=== PATIENT | male | born 1945 | race Caucasian/White ===

== ENCOUNTER → 2021-05-27 | Outpatient (CLI) | payer MEDICARE, BC ==
--- NOTE | 2021-05-27 09:20 | RAD ---
Examination: Ultrasound abdomen limited HISTORY: History of right upper quadrant abdomen. COMPARISON: None available FINDINGS: The visualized pancreas grossly appears unremarkable. The liver length measures 16.2 cm. Moderate inc reased echogenicity identified in the liver likely hepatic steatosis. The gallbladder is mildly diste nded. There is linear echogenicity identified in the gallbladder likely Phrygian cap or fold. No evid ence of gallstones. The common bile duct measures 5 mm in transverse dimension. The right kidney edwige ures 11.3 x 5.6 x 4.8 cm. The pancreas, IVC, aorta are not well-visualized. IMPRESSION: 1. Hepatic steatosis. Electronically signed by: Chris Price MD (05/27/2021 9:17 AM) [id number]
== END ==
LOC: US 08:14
PROVIDERS: ATTEND Internal Medicine
DX: K76.0 Fatty (change of) liver, not elsewhere classified (principal); K82.8 Other specified diseases of gallbladder
CPT/HCPCS: 76705

== ENCOUNTER 2021-08-06 19:37 | Emergency (ER) | payer MEDICARE, BC ==
[~2021-08-06] VITALS: Ht 170.2 cm; Wt 100.0 kg
[2021-08-06 20:39] VITALS: BP 165/86
[2021-08-06] MEDS ORDERED: DEXAMETHASONE 4 MG TABLET PO ONE (21:15)
[2021-08-06] MEDS ORDERED: ORPHENADRINE CITRATE 60 MG/2 ML VIAL. IM ONE (21:15)
[2021-08-06] MEDS ORDERED: KETOROLAC 30 MG/ML VIAL. IM ONE (21:15)
[2021-08-06] MEDS ORDERED: HYDROcodone/APAP 5/325MG 1 TAB TABLET PO ONE (21:15)
[2021-08-06] MEDS ORDERED: HYDR-2759 PO (21:22)
[2021-08-06] MEDS ORDERED: PRED20TA PO (21:22)
[2021-08-06] MEDS ORDERED: ORPH-16 PO (21:22)
--- NOTE | 2021-08-06 21:22 | PHYS DOC ---
Past History Past Surgical History: Other Additional Past Surgical Histo: LEFT ACL, R ROTATOR CUFF General Adult EDM: Chief Complaint: LOWER EXT PAIN HPI: HPI: Patient is a [age] year old [sex] who presents with [] Review of Systems: Review of Systems: Constitutional: Denies fever or chills Eyes: Denies change in visual acuity HENT: Denies nasal congestion or sore throat Respiratory: Denies cough or shortness of breath Cardiovascular: Denies chest pain or edema GI: Denies abdominal pain, nausea, vomiting, bloody stools or diarrhea : Denies dysuria Musculoskeletal: Denies back pain or joint pain Integument: Denies rash Neurologic: Denies headache, focal weakness or sensory changes Endocrine: Denies polyuria or polydipsia Lymphatic: Denies swollen glands Psychiatric: Denies depression or anxiety Current Medications: Current Meds: Current Medications Medications (Trade) Dose Ordered Sig/Salazar Start Time Stop Time Status Last Admin Dose Admin Acetaminophen/ Hydrocodone Bitart (Lortab 5/325) 1 tab 1X ONCE 08/06/21 21:15 08/06/21 21:16 UNV Dexamethasone (Decadron) 10 mg 1X ONCE 08/06/21 21:15 08/06/21 21:16 UNV Ketorolac Tromethamine (Toradol 30mg Vial) 20 mg 1X ONCE 08/06/21 21:15 08/06/21 21:16 UNV Orphenadrine Citrate (Norflex) 60 mg 1X ONCE 08/06/21 21:15 08/06/21 21:16 UNV Allergies: Allergies: Allergies Coded Allergies Type Severity Reaction Last Updated Verified No Known Drug Allergies 08/06/21 No Physical Exam: PE: Constitutional: Well developed, well nourished, no acute distress, non-toxic appearance. [] HENT: Normocephalic, atraumatic, bilateral external ears normal, oropharynx moist, no oral exudates, nose normal. [] Eyes: PERRLA, EOMI, conjunctiva normal, no discharge. [] Neck: Normal range of motion, no tenderness, supple, no stridor. [] Cardiovascular:Heart rate regular rhythm, no murmur [] Lungs & Thorax: Bilateral breath sounds clear to auscultation [] Abdomen: Bowel sounds normal, soft, no tenderness, no masses, no pulsatile masses. [] Skin: Warm, dry, no erythema, no rash. [] Back: No tenderness, no CVA tenderness. [] Extremities: No tenderness, no cyanosis, no clubbing, ROM intact, no edema. [] Neurologic: Alert and oriented X 3, normal motor function, normal sensory function, no focal deficits noted. [] Psychologic: Affect normal, judgement normal, mood normal. [] Current Patient Data: Vital Signs: Vital Signs Date Time Temp Pulse Resp B/P (MAP) Pulse Ox O2 Delivery O2 Flow Rate FiO2 08/06/21 20:39 97.5 81 18 165/86 (112) 97 Room Air EKG: EKG: [] Radiology/Procedures: Radiology/Procedures: [] Heart Score: Risk Factors: Risk Factors: DM, Current or recent (<one month) smoker, HTN, HLP, family history of CAD, obesity. Risk Scores: Score 0 - 3: 2.5% MACE over next 6 weeks - Discharge Home Score 4 - 6: 20.3% MACE over next 6 weeks - Admit for Clinical Observation Score 7 - 10: 72.7% MACE over next 6 weeks - Early Invasive Strategies Course & Med Decision Making: Course & Med Decision Making Pertinent Labs and Imaging studies reviewed. (See chart for details) [] Dragon Disclaimer: Dragon Disclaimer: This electronic medical record was generated, in whole or in part, using a voice recognition dictation system. Departure Departure: Impression: Primary Impression: Sciatica Qualified Codes: M54.31 - Sciatica, right side Disposition: 01 HOME / SELF CARE / HOMELESS Condition: STABLE Referrals: ANGEL GUERRIER MD (PCP) NIDIA SHELDON MD Patient Instructions: Back Pain, Adult, [id number], Sciatica, [id number] Additional Instructions: Ice area of discomfort 20 minutes on then leave off for next 20 minutes. Repeat several times daily for the next few days. May also use [id number] ibuprofen 600 mg which is 3 [id number] tablets 3 times daily as needed for pain or discomfort in addition to prescribed medications. Scripts Orphenadrine Citrate (ORPHENADRINE CITRATE) 100 Mg Tablet.er 1 TAB PO BID PRN for MUSCLE PAIN, #14 TAB 0 Refills Prov: MERT AC DO 08/06/21 Prednisone (PREDNISONE) 20 Mg Tablet 2 TAB PO DAILY for Back pain, #8 TAB Start this prescription tomorrow, 08/07/21 Prov: MERT AC DO 08/06/21 Hydrocodone/Acetaminophen (Hydrocodone-Acetamin 5-325 mg) 1 Each Tablet 0.5-1 EACH PO Q6HRS PRN for PAIN, #10 TAB Prov: MERT AC DO 08/06/21 MERT AC DO Aug 06, 2021 21:22
== END 2021-08-06 21:40 | disposition home or self-care (01) ==
LOC: ER 19:37
DX: M54.41 Lumbago with sciatica, right side (principal); M79.604 Pain in right leg
CPT/HCPCS: 96372; 99284; J1885; J2360; J8540